=== PATIENT | female | born 1995 | race Caucasian/White ===

== ENCOUNTER 2019-03-02 10:39 | Inpatient (IN) | payer MEDICAID, OTHER ==
--- NOTE | 2019-03-02 07:02 | PDOC.FPROB ---
FMR OB H&P: HPI - History of Present Illness Chief Complaint: scheduled repeat Indentification: 23 y/o @ 39.3 WGA by 12.5 wk sono here for scheduled History of Present Illness: Patient denies any complaints today. Denies vaginal bleeding, ctx, vaginal d/c, LOF. She endorses good movement. Primary Care Physician: Dr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: Denies any h/o STI's or abnormal paps - Surgical History Sx History: section x 2 - Social History Social History: Denies any tobacco, EtOH, or drug use - Family History Family History: Family hx of ovarian cancer in mother and maternal cousin FMR OB H&P: Medications - Current Home Medications: Medication Instructions Recorded Confirmed Type 105/Iron/Folic AC/Dha 1 tab PO DAILY 03/02/19 03/02/19 History [Prena1 True Combo Pack] Allergies/Adverse Reactions: Allergies Allergy/AdvReac Type Severity Reaction Status Date / Time No Known Allergies Allergy Unverified 03/02/19 10:51 FMR OB H&P: ROS - Review of Systems General: denies: fever/chills, recent trauma ENT: denies: nasal congestion, rhinorrhea Cardiovascular: denies: chest pain, edema Respiratory: denies: cough, shortness of breath Gastrointestinal: reports: indigestion. denies: abdominal pain, diarrhea Genitourinary (Female): denies: dysuria, hematuria Musculoskeletal: denies: pain, tenderness Neurologic: denies: numbness, weakness Integumentary: denies: itching, rash Hematologic/Lymphatic: denies: prolonged or excessive bleeding Psychological: denies: depression, anxiety FMR OB H&P: Vital Signs - Maternal Vital signs: BP 106/61 HR 82 RR 16 O2 sat 99% on RA - Heart Tones Baseline: 125 Variability: moderate Acceleration: present Deceleration: absent Category: category 1 Ra[place] contractions every: none FMR OB H&P: Physical Exam - Physical Exam General: NAD, awake, alert and oriented HEENT: normocephalic and atraumatic, MMM, grossly normal vision, grossly normal hearing Neck: supple, no LAD Heart: RRR, normal S1/S2, no murmurs/rubs/gallops, pulses present, no edema General: CTAB, no respiratory distress, good air movement, no rales/rhonchi, no wheezing Abdomen: soft, gravid, non-tender, bowel sound present Musculoskeletal: normal gait and station Neurological: cranial nerves II through XII intact, no focal deficit Skin: good tugor, capillary refill <2 seconds Lymphatic: no unusual bruising or bleeding, no purpura Psychiatric: intact recent and remote memory, good judgement and insight FMR OB H&P: Results - Imaging Imaging: Bedside US showed cephalic position and posterior fundal placenta FMR OB H&P: A/P - Problem List (1) Term Status: Acute Code(s): Z34.90 - ENCNTR FOR SUPRVSN OF NORMAL , UNSP, UNSP TRIMESTER Assessment and Plan: Plan for repeat today -NPO -LR @ 125 -Anesthesia consulted for spinal - monitoring -Ancef 2g (2) H/O section Status: Acute Code(s): Z98.891 - HISTORY OF UTERINE SCAR FROM PREVIOUS SURGERY Assessment and Plan: Two prior sections -Plan for repeat today (3) Family history of ovarian cancer Status: Acute Code(s): Z80.41 - FAMILY HISTORY OF MALIGNANT NEOPLASM OF OVARY Assessment and Plan: Patient with history of first degree relative with ovarian cancer. -Has been approved for risk reducing salpingectomy, so will perform with today -Dr. Lang has been consulted for risk reducing salpingectomy. Disposition: Admit to L&D Discussion: Date/Time: 03/02/19 0701 This H&P was discussed with Dr. Broussard who agrees with the above documentation and plan. Signature: Nishi Bardales MD, PGY-2 Addendum - Attending - Attending Attestation Date/Time: 03/02/19 1400 I personally evaluated the patient and discussed the management with Dr. Bardales I agree with the History, Examination, Assessment and Plan documented above with any addition or exceptions noted below. 23 y/o @ 39.3 WGA by 12.5 wk sono here for scheduled with salpingectomy for ovarian cancer risk reduction. Pt was counseled on r/b/a of repeat section/salpingectomy. She verbalized understanding of these risks and desire to proceed with both procedures. Pt accidentally signed the incorrect area of the surgical consent but she verbally gave informed consent for salpingectomy. Additionally she signed consent with [facility]
[2019-03-02] MEDS ORDERED: Promethazine HCl 25 MG/ML VIAL IM PRN ×2 (10:48→14:11)
[2019-03-02] MEDS ORDERED: Ondansetron PF 4 MG/2 ML Vial IVP PRN ×3 (10:48→14:59)
[2019-03-02] MEDS ORDERED: Bicitra 30 ML UDCUP PO SCH (10:48)
[2019-03-02] MEDS ORDERED: CEFAZOLIN 2 GM in Premix Bag 1 BAG IVPB SCH (10:48)
[2019-03-02 11:12] LABS: Hemoglobin 12.4 g/dL (12.0-16.0); Mean Corpuscular Volume 88.4 fL (78.0-98.0); Platelet Count 190 thou/uL (130-400); RBC Distribution Width 14.4 % (11.5-14.5); Red Blood Cell (RBC) Count 4.13 mill/uL (4.20-5.40); White Blood Cell (WBC) Count 7.4 thou/uL (4.8-10.8)
[2019-03-02] MEDS: Lactated Ringer's 1,000 ML IV SCH ×2 (11:40→20:42)
[2019-03-02] MEDS ORDERED: ePHEDrine/0.9% NaCl/PF SYRINGE 50 mg/10 ml ONE (11:59)
[2019-03-02] MEDS ORDERED: Oxytocin 10 UNITS/ML VIAL ONE ×2 (11:59→13:20)
[2019-03-02] MEDS ORDERED: Dexamethasone 4 mg/ml Vial ONE (11:59)
[2019-03-02] MEDS ORDERED: Ondansetron PF 4 MG/2 ML Vial ONE (11:59)
[2019-03-02 12:00] LABS: HBSAg Index 0.32 S/CO (0-0.99); Hep B Surf Ag Non-Reactive S/CO (NonReactive)
[2019-03-02] MEDS ORDERED: MORPHINE 5 MG/10 ML PF VIAL ONE (12:01)
[2019-03-02] MEDS ORDERED: Phenylephrine HCL 10 MG/ML VIAL ONE (12:20)
[2019-03-02 12:33] LABS: Syphilis Antibody Nonreactive (Nonreactive); Syphilis Antibody Index 0.04 S/CO (<1.00 Non-Reactive)
[2019-03-02 13:29] VITALS: BMI 25.1
[2019-03-02] MEDS ORDERED: Ondansetron HCl/PF 4 MG/2 ML Vial IVP PRN (14:11)
[2019-03-02] MEDS ORDERED: Meperidine HCl/PF 25 MG/ML VIAL SLOW IVP PRN (14:11)
[2019-03-02] MEDS ORDERED: Naloxone HCl 0.4 mg/ml Vial IV PRN (14:11)
[2019-03-02] MEDS ORDERED: Naloxone HCl 0.4 mg/ml Vial IVP PRN ×2 (14:11)
[2019-03-02] MEDS ORDERED: Promethazine HCl 25 MG SUPP PR PRN (14:11)
[2019-03-02] MEDS ORDERED: HYDROmorphone 2 MG/ML VIAL SLOW IVP PRN (14:11)
[2019-03-02] MEDS ORDERED: L&D-Morphine 4 MG/ML VIAL SLOW IVP PRN (14:11)
[2019-03-02] MEDS ORDERED: Communication Order-Pharmacy FS SCH (14:15)
[2019-03-02] MEDS ORDERED: Ketorolac Tromethamine 30 MG/ML VIAL IVP SCH (14:15)
--- NOTE | 2019-03-02 14:19 | PDOC.OPDEL ---
OB Operative/Delivery Note Delivery Dr/Surgeon: Dr. Bardales with Dr. Broussard attending. Dr. Lang was surgeon for RRS Assist: Dr. Haq Pre-Delivery Diagnosis: scheduled section Procedure/Post Delivery Dx: repeat low transverse CS Weeks gestation: 39 (39w3d) Anesthesia: spinal - Findings A Sex: male - 1 min: 8 - 5 min: 9 - Additional Findings/Plan Placenta delivered: manual removal findings: low transverse hysterotomy without extension Estimated blood loss: 860mL Compilations/Other Findings: Preoperative Diagnosis: 1)Term intrauterine 2)Previous 3)Family history of ovarian cancer Postoperative Diagnosis: 1)Term intrauterine , delivered 2)Previous 3)Family history of ovarian cancer Anesthesia: spinal Indications: The patient is a 23 year old female at 39.3 weeks gestation who presents for a repeat scheduled and risk reducing salpingectomy. Procedure in Detail: After risks, benefits, and alternatives were explained to the patient, she gave informed consent. Pre-operative antibiotics included Cefazolin 2 gram IV. The patient was taken to the operating room and spinal anesthesia was initiated. She was placed in the supine position with a left tilt and prepped and draped in usual sterile fashion. A Pfannenstiel incision was made with a scalpel and carried down to the level of the fascia which was sharply nicked. The fascial cut was extended bilaterally with Chopra scissors. The inferior and superior edges of the cut fascial edges were elevated with Miguelito clamps and the underlying rectus muscles were sharply and bluntly dissected free. The recti were divided using two hemostats and Metzembaum scissors and retracted manually. The peritoneum was entered bluntly and retracted manually. An heather O retractor was placed. A low transverse score was made with the scalpel and the uterus was entered in the midline bluntly. Clear fluid was seen. The hysterotomy was extended manually in a cephalocaudal fashion. The infant was noted to be vertex and was easily delivered by fundal pressure. Mouth and nares were bulb suctioned. Cord clamped and cut and grossly normal male infant was handed to waiting nurse. Cord blood was obtained. Placenta was manually extracted, found to be intact with 3 vessel cord and discarded. The uterus was externalized and the endometrium was curetted with a dry lap. The uterus was closed with a running locking 0- Monocryl. There were a few bleeding areas on the serosal edge that were cauterized with the bovie. Following this hemostasis was noted. The risk reducing salpingectomy was performed at this point by Dr. Lang, see his operative note for full details. The uterus was internalized and the hysterotomy was again noted to be hemostatic. The rectus muscle was examined and found to have a few bleeding areas that were cauterized with the bovie. The fascia was closed with a running non-locking 0-PDS suture. The subcutaneous tissue was irrigated and the bleeders were cauterized with the bovie. The subcutaneous tissue was approximated with interrupted 2-0 plaingut. The skin was closed with 3-0 monocryl and dermabond. A dressing was placed. All counts were correct. The patient tolerated the procedure well and was taken to the recovery room in stable condition. Quantitative Blood Loss: 860 ml Complications: None Specimens: Cord blood sent to lab for blood type. Bilateral grossly normal fallopian tubes sent to lab Findings: Grossly normal male with apgars of 8 and 9 at 1 and 5 minutes respectively. Grossly normal placenta with 3 vessel cord discarded. Drains: Warren to gravity draining clear urine Post delivery plan: routine recovery Addendum - Attending - Attending Attestation Date/Time: 03/02/19 7930 I was present for and assisted in the entire delivery performed by Brendon Bardales and Severino. I agree with documentation as above. See Dr Lang's operative report for details of salpingectomy.
[2019-03-02] MEDS ORDERED: diphenhydrAMINE 50 MG/ML VIAL ONE (14:22)
[2019-03-02] MEDS ORDERED: Ketorolac Tromethamine 30 MG/ML VIAL ONE (14:22)
[2019-03-02] MEDS: diphenhydrAMINE 50 MG/ML VIAL IVP PRN ×2 (14:23→20:41)
[2019-03-02] MEDS: Ketorolac Tromethamine 30 MG/ML VIAL IVP PRN ×2 (14:23→20:40)
[2019-03-02] MEDS ORDERED: Simethicone Chewable 80 MG TAB PO PRN (14:59)
[2019-03-02] MEDS ORDERED: diphenhydrAMINE 25 MG CAP PO PRN (14:59)
[2019-03-02] MEDS ORDERED: Adacel (T-DAP) 0.5 ML SYRINGE IM ONE (14:59)
[2019-03-02] MEDS ORDERED: Methylergonovine 0.2 MG TAB PO PRN (14:59)
[2019-03-02] MEDS ORDERED: NS / Oxytocin 40 units/1000ml 1,000 ML IV SCH (14:59)
[2019-03-02] MEDS ORDERED: Acetaminophen 325 MG TAB PO PRN (14:59)
[2019-03-02] MEDS ORDERED: Methylergonovine 0.2 MG/ML VIAL IM PRN (14:59)
[2019-03-02] MEDS ORDERED: Misoprostol 200 MCG TAB PR PRN (14:59)
--- NOTE | 2019-03-02 18:15 | PDOC.EVN ---
Event Note - Event Note Event Note: Note from 4 hour post-op check @ 1630 Patient laying in bed, holding baby in PP room. She denies pain at this time. She would like to try some broth. Warren in place with Uop of 300mL since on the floor. No excessive vaginal bleeding. Fundus is below umbilicus and appropriately TTP. Vital signs stable. Bandage clean, dry, intact. She has no concerns. Continue routine care.
--- NOTE | 2019-03-02 18:18 | OP ---
DATE OF PROCEDURE: 03/02/2019 PREOPERATIVE DIAGNOSIS: Family history of ovarian cancer, requests risk reducing salpingectomy at time of repeat . POSTOPERATIVE DIAGNOSIS: Family history of ovarian cancer, requests risk reducing salpingectomy at time of repeat . PROCEDURE PERFORMED: Bilateral salpingectomies at time of . SURGEON: Sandro Lang MD MARKETING UNDERWRITER SURGEON: Nishi Bardales MD ANESTHESIA: Spinal. ESTIMATED BLOOD LOSS: Minimal. COMPLICATIONS: None. TECHNIQUE IN DETAIL: This is a patient, who has been followed in [facility] and had been consented for risk reducing salpingectomy due to a family history. Her baby had just been delivered by section by the [facility] personnel and the hysterotomy has been closed. I scrubbed in, and both adnexa were within normal limits bilaterally. Starting on the left side, the left tube was removed by way of serial clamping, excising, and suture ligating of the mesial salpinx. This was carried up to the insertion of the uterus. Good hemostasis was noted along the left side. Attention was turned to the opposite side, where similar procedure was performed. Good hemostasis was noted across all pedicles. The case was then returned to the [facility] doctors for the closure of the abdominal cavity. Job ID: [id number] [id number]
[2019-03-03] MEDS: Docusate Calcium (SURFAK) 240 MG CAP PO SCH ×3 (01:35→21:30)
[2019-03-03] MEDS ORDERED: Sodium Chloride 0.9% 10 ML ONE (03:04)
[2019-03-03] MEDS: Ketorolac Tromethamine 30 MG/ML VIAL IVP PRN (03:05)
--- NOTE | 2019-03-03 06:25 | PDOC.OBPPN ---
FMR OB PN: Subj - Interval History Hospital Day: 2 Day: 1 Patient reports her pain is well controlled. She has been ambulating to the bathroom and voiding and passing flatus. She reports minimal lochia. She is tolerating PO. Denies N/V, chest pain, vision changes, headaches. She is breast feeding without difficulty. FMR OB PN: Obj - Maternal Vital signs: BP: 98/54 HR: 70 RR: 18 Tmax: 98.1 Pox: 96% on RA Wt: 64kg - Urine output I&O: 03/01/19 03/02/19 03/03/19 06:59 06:59 06:59 Intake Total 755 Output Total 1400 Balance -645 FMR OB PN: Exam - Physical Exam General: NAD, awake, alert and oriented HEENT: EOMI, MMM, grossly normal vision, grossly normal hearing Neck: supple, no LAD Heart: RRR, normal S1/S2, no murmurs/rubs/gallops, pulses present, no edema General: CTAB, no respiratory distress, good air movement, no rales/rhonchi, no wheezing Abdomen: soft, fundus(cm) (2 cm below umbilicus) Neurological: no clonus, no focal deficit Skin: good tugor, capillary refill <2 seconds : incision healing well, no erythema, no edema, no drainage Lymphatic: no unusual bruising or bleeding, no purpura Psychiatric: intact recent and remote memory, good judgement and insight FMR OB PN: Data - Labs Lab results: Laboratory Results - last 24 hr 03/02/19 03/02/19 03/02/19 10:57 10:57 10:57 WBC RBC Hgb Hct MCV MCH MCHC RDW Plt Count MPV Syphilis IgG/IgM Ab Nonreactive Hep Bs Antigen Non-Reactive Blood Type O POSITIVE Antibody Screen NEGATIVE 03/02/19 03/02/19 10:57 11:34 WBC 7.4 RBC 4.13 L Hgb 12.4 Hct 36.5 MCV 88.4 MCH 30.0 MCHC 34.0 RDW 14.4 Plt Count 190 MPV 9.0 Syphilis IgG/IgM Ab Hep Bs Antigen Blood Type O POSITIVE Antibody Screen FMR OB PN: A/P - Problem List (1) Term delivered Current Visit: Yes Status: Acute Code(s): O80 - ENCOUNTER FOR FULL-TERM UNCOMPLICATED DELIVERY Assessment and Plan: Patient s/p rLTCS with RRS -Continue routine care -Advance diet as tolerated -Encourage ambulation -Encourage breast feeding -PNV -AM H/H pending -Pain controlled with toradol, will transition to PO pain meds today (2) H/O section Current Visit: No Status: Acute Code(s): Z98.891 - HISTORY OF UTERINE SCAR FROM PREVIOUS SURGERY Assessment and Plan: PPD#1 s/p rLTCS with RRS -Patient with two priors (3) Family history of ovarian cancer Current Visit: No Status: Acute Code(s): Z80.41 - FAMILY HISTORY OF MALIGNANT NEOPLASM OF OVARY Assessment and Plan: First degree relative with ovarian cancer. Patient s/p risk reducing salpingectomy on 03/02/19 Disposition: Continue to monitor on post- Discussion: Date/Time: 03/03/19 0623 This H&P was discussed with Dr. Broussard who agrees with the above documentation and plan. Signature: Nishi Bardales MD, PGY-2 Addendum - Attending - Attending Attestation Date/Time: 03/03/19 1413 I personally evaluated the patient and discussed the management with Dr. Bardales I agree with the History, Examination, Assessment and Plan documented above with any addition or exceptions noted below. Stable POD #1 s/p RLTCS with RRS Meeting appropriate milestones. Drop in Hgb appropriate postoperatively. Overall doing well. Anticipate d/c to home on POD #2 or 3.
[2019-03-03 07:03] LABS: Hemoglobin 11.2 g/dL (12.0-16.0); Mean Corpuscular HGB CONC 33.7 g/dL (32.0-36.0); Mean Corpuscular Hemoglobin 30.2 pg (27.0-31.0); Mean Corpuscular Volume 89.5 fL (78.0-98.0); Platelet Count 175 thou/uL (130-400); RBC Distribution Width 14.5 % (11.5-14.5); Red Blood Cell (RBC) Count 3.72 mill/uL (4.20-5.40); White Blood Cell (WBC) Count 11.4 thou/uL (4.8-10.8)
[2019-03-03] MEDS: HYDROcodone/Acetaminophen 5/325 mg Tablet PO PRN ×3 (11:03→21:31)
[2019-03-03] MEDS: Ibuprofen 800 MG TAB PO SCH ×2 (14:07→21:30)
[2019-03-03] MEDS ORDERED: HYDROcodone/Acetaminophen 5/325 mg Tablet PO PRN (19:40)
[2019-03-04] MEDS: HYDROcodone/Acetaminophen 5/325 mg Tablet PO PRN ×2 (02:20→09:05)
[2019-03-04] MEDS: Ibuprofen 800 MG TAB PO SCH (06:03)
--- NOTE | 2019-03-04 07:05 | PDOC.OBPPN ---
FMR OB PN: Subj - Interval History Hospital Day: 3 Day: 2 Patient reports her pain is well controlled, but she is requiring norco regularly. She has been ambulating, voiding, and passing flatus. She reports having a BM last night. She reports minimal lochia. She is tolerating PO. Denies N/V, chest pain, vision changes, headaches. She is breast feeding without difficulty. FMR OB PN: Obj - Maternal Vital signs: BP: 113/71 HR: 80 RR: 18 Tmax: 98.6 Pox: 97% on RA Wt: 64kg - Urine output I&O: 03/03/19 03/04/19 03/05/19 06:59 06:59 06:59 Intake Total 2324 Output Total 2800 Balance -476 FMR OB PN: Exam - Physical Exam General: NAD, awake, alert and oriented HEENT: EOMI, MMM, grossly normal vision, grossly normal hearing Neck: supple, no LAD Heart: RRR, normal S1/S2, no murmurs/rubs/gallops, pulses present, no edema General: CTAB, no respiratory distress, good air movement, no rales/rhonchi, no wheezing Abdomen: soft, fundus(cm) (firm 2 cm below umbilicus) Skin: good tugor, capillary refill <2 seconds : incision healing well, no erythema, no edema, no drainage, appropriately tender Lymphatic: no unusual bruising or bleeding, no purpura Psychiatric: intact recent and remote memory, good judgement and insight FMR OB PN: Data - Labs Lab results: Laboratory Results - last 24 hr 03/03/19 06:49 WBC 11.4 H RBC 3.72 L Hgb 11.2 L Hct 33.3 L MCV 89.5 MCH 30.2 MCHC 33.7 RDW 14.5 Plt Count 175 MPV 9.0 FMR OB PN: A/P - Problem List (1) Term delivered Status: Acute Code(s): O80 - ENCOUNTER FOR FULL-TERM UNCOMPLICATED DELIVERY Assessment and Plan: Patient s/p rLTCS with RRS -Continue routine care -Continue regular diet -Encourage ambulation -Encourage breast feeding -PNV -Pain controlled with norco prn and ibuprofen scheduled (2) H/O section Status: Acute Code(s): Z98.891 - HISTORY OF UTERINE SCAR FROM PREVIOUS SURGERY Assessment and Plan: Patient POD#2 now with 3 sections (3) Family history of ovarian cancer Status: Acute Code(s): Z80.41 - FAMILY HISTORY OF MALIGNANT NEOPLASM OF OVARY Assessment and Plan: First degree relative with ovarian cancer. Patient s/p risk reducing salpingectomy on 03/02/19 Disposition: Anticipate d/c home today pending pain control Discussion: Date/Time: 03/04/19 0703 This H&P was discussed with Dr. Broussard who agrees with the above documentation and plan. Signature: Nishi Bardales MD, PGY-2 Addendum - Attending - Attending Attestation Date/Time: 03/04/19 1625 I personally evaluated the patient and discussed the management with Dr. Bardales I agree with the History, Examination, Assessment and Plan documented above with any addition or exceptions noted below. Stable POD # 2 s/p RLTCS with RRS. Pt meeting appropriate postoperative milestones and pt is requesting early discharge. Stable for d/c today
[2019-03-04 08:20] VITALS: BP 110/74; TEMP 97.6
[2019-03-04] MEDS: Docusate Calcium (SURFAK) 240 MG CAP PO SCH (09:05)
== END 2019-03-04 13:45 | disposition home or self-care (01) | DRG 785 ==
LOC: L&D 10:39 → UNDODISIN 11:46 → L&D 13:24 → 3SW 15:40
PROVIDERS: ADMIT Family Medicine; ATTEND Family Medicine
PROC: 10D00Z1 Extraction of Products of Conception, Low, Open Approach (ICD-10-PCS; principal; 2019-03-03)
PROC: 0UT70ZZ Resection of Bilateral Fallopian Tubes, Open Approach (ICD-10-PCS; 2019-03-03)
DX: O34.211 Maternal care for low transverse scar from previous cesarean delivery (principal); Z3A.39 39 weeks gestation of pregnancy; Z37.0 Single live birth; Z40.03 Encounter for prophylactic removal of fallopian tube(s); Z80.41 Family history of malignant neoplasm of ovary
CPT/HCPCS: 36415; 51702; 85027; 86780; 86850; 86900; 86901; 87340; 88302; 90715; J0690; J1100; J1200; J1885; J2270; J2370; J2405; J2590; Q0163